=== PATIENT | male | born 1970 | race Caucasian/White ===

== ENCOUNTER 2021-05-23 11:13 | Emergency (ER) | payer BC, SELFPAY ==
[2021-05-23 11:26] VITALS: BP 129/83; PULSE 91; RESP 16; TEMP 36.7; O2SAT 99
--- NOTE | 2021-05-23 11:41 | ED.DENTAL ---
HPI - Dental/Oral General Chief complaint: Dental/Oral Stated complaint: Tooth Pain Time Seen by Provider: 05/23/21 11:41 Source: patient, RN notes reviewed and old records reviewed Mode of arrival: ambulatory Limitations: no limitations History of Present Illness HPI Narrative: 50-year-old male presents to the [facility] with complaints of right lower posterior dental pain and swelling. States that his tooth broke 2 days ago and now the gum and jaw are mildly swollen, reddened. Has been taking Tylenol and using salt water gargles. Has very poor dentition to begin with. Was unable to find a dental provider in the local area to see him today. States he is visiting from [place]. Related Data Home Medications Medication Instructions Recorded Confirmed buspirone mg 05/23/21 chlorthalidone 05/23/21 folic acid 05/23/21 icosapent ethyl [Vascepa] g PO 05/23/21 lisinopril 05/23/21 potassium chloride meq PO 05/23/21 sitagliptin [Januvia] mg 05/23/21 upadacitinib [Rinvoq] mg PO 05/23/21 Allergies Allergy/AdvReac Type Severity Reaction Status Date / Time Penicillins Allergy Rash Verified 05/23/21 11:47 Review of Systems Review of Systems: All systems reviewed & are unremarkable except as noted in HPI and below Constitutional: Constitutional: Reports no additional constitutional complaints, Denies chills, Denies fever(s) and Denies weakness Eyes: Eyes: Reports no additional eye complaints ENT: Reports as per HPI Comments: Right lower molar decay, broken Cardiovascular: Cardiovascular: Reports no additional cardiovascular complaints and Denies chest pain Respiratory: Respiratory: Reports no additional respiratory complaints, Denies cough, Denies dyspnea and Denies wheezing Gastrointestinal: Gastrointestinal: Reports no additional gastrointestinal complaints, Denies abdominal pain, Denies diarrhea, Denies nausea and Denies vomiting Genitourinary: Genitourinary: Reports no additional male genitourinary complaints Musculoskeletal: Musculoskeletal: Reports no additional musculoskeletal complaints Integumentary/Breasts: Skin/Breast: Reports system reviewed and no additional complaints, except as docu Neurologic: Reports system reviewed and no additional complaints, except as documented Psychiatric: Psychiatric: Reports no additional psychiatric complaints Allergic/Immunologic: Allergic/Immunologic: Reports no additional allergic/immunologic complaints PMFSH Past Medical History Medical History (Updated 05/23/21 @ 18:02 by Payton Parker Hypertension Exam Const: General: no acute distress, alert and ill appearing chronically; not acutely Nutritional Appearance: well nourished and obese Orientation/consciousness: patient oriented x3 HENMT: Head: normal to inspection Ears: external ears normal, TM's normal bilaterally and EAC's normal General nose exam: Normal nares present Face and sinus: sinuses nontender Mouth: Yes lip normal Teeth and gingiva: abnormal tooth and associated gingiva (Right lower molars, broken\decayed below the gumline, gingiva red, inflamed), caries and poor dentition Throat: posterior oropharynx normal Eyes: Conjunctivae: conjunctivae normal Pupils: Equal, round and reactive pupils present Neck: Neck: normal visual inspection, no lymphadenopathy and no meningeal signs Chest: Chest palpation & inspection: normal inspection of the chest Resp: Effort & Inspection: normal respiratory effort Cardio: Rate: regular rate Back/Spine/Pelvis: Back: no CVA tenderness Skin: General skin exam: normal color Rashes: no rashes Wounds: no wounds Neuro: General: patient oriented x3, moves all extremities, no meningeal signs and no focal motor deficits Speech: normal speech Gait exam (Neuro): Normal gait present Extrem: General: normal to inspection Psych: Appearance: grossly normal and well kempt Mental Status: mental status grossly normal Affect: normal affect Attitude: coop
== END 2021-05-23 11:57 | disposition home or self-care (01) ==
PROVIDERS: Emergency Provider Nurse Practitioner
DX: K04.7 Periapical abscess without sinus (principal); I10 Essential (primary) hypertension
CPT/HCPCS: 99203; G0463